=== PATIENT | female | born 1960 | race Caucasian/White ===

== ENCOUNTER 2020-06-21 13:10 | Outpatient (CLI) | payer MEDICARE | END 2020-06-21 13:11 | disposition home or self-care (01) | LOC: CSHCT 13:10 | PROVIDERS: ATTEND Internal Medicine Pulmonary Disease | DX: U07.1 COVID-19 (principal); J12.82 Pneumonia due to coronavirus disease 2019; J84.10 Pulmonary fibrosis, unspecified; J47.9 Bronchiectasis, uncomplicated | CPT/HCPCS: 71250 ==

== ENCOUNTER 2020-06-24 13:18 | Outpatient (CLI) | payer MEDICARE | END 2020-06-24 13:19 | disposition home or self-care (01) | LOC: CSHULT 13:18 | PROVIDERS: ATTEND Internal Medicine Pulmonary Disease | DX: J96.11 Chronic respiratory failure with hypoxia (principal); I27.20 Pulmonary hypertension, unspecified | CPT/HCPCS: 93306 ==

== ENCOUNTER 2020-12-15 18:05 | Observation (INO) | payer MEDICARE ==
[2020-12-15] MEDS ORDERED: Piperacillin/Tazobactam 4.5 GM VIAL ONE (19:09)
[2020-12-15 19:12] LABS: #Basophils 0.1 10x3/uL (0.0-0.2); #Eosinphils 0.3 10x3/uL (0.0-0.5); #Monocytes 0.7 10x3/uL (0.0-1.1); #Neutrophils 4.6 10x3/uL (1.5-8.4); %Basophils 0.7 % (0.0-2.0); %Eosinophils 3.6 % (0.0-6.0); %Lymphocytes 36.3 % (18.0-47.0); %Monocytes 7.3 % (0.0-10.0); %Neutrophils 51.8 % (40.0-75.0); Hemoglobin 12.8 g/dL (12.0-15.5); Mean Corpuscular Hemoglobin 28.6 pg (27.0-33.0); Mean Corpuscular Volume 89.5 fl (81.6-98.3); Platelet Count 185 10x3/uL (150-450); RBC Distribution Width 13.5 % (11.5-14.5); Red Blood Cell (RBC) Count 4.47 10x6/uL (3.90-5.03); White Blood Cell (WBC) Count 8.9 10x3/uL (3.5-10.5)
[2020-12-15 19:32] LABS: ALT (SGPT) 21 U/L (8-55); AST (SGOT) 21 U/L (5-34); Alkaline Phosphatase 92 U/L (40-110); Anion Gap 13 mmol/L (10-20); BUN (Urea Nitrogen) 29 mg/dL (9.8-20.1); Bilirubin, Total 0.3 mg/dL (0.2-1.2); Calc. Creatinine Clearance 0 mL/min (70-130); Calcium 9.1 mg/dL (7.8-10.44); Carbon Dioxide 31 mmol/L (22-29); Chloride 99 mmol/L (98-107); Globulin 3.7 g/dL (2.4-3.5); Glucose 121 mg/dL (70-105); Potassium 4.2 mmol/L (3.5-5.1); Protein, Total 7.7 g/dL (6.0-8.3); Sodium 139 mmol/L (136-145)
[2020-12-15] MEDS ORDERED: VANCOMYCIN 2 GRAM/400 ML BAG 2 GM in Premix Bag 1 BAG IVPB SCH (20:15)
[2020-12-15] MEDS ORDERED: Ondansetron PF 4 MG/2 ML Vial ONE (20:18)
[2020-12-15] MEDS ORDERED: Morphine 4 MG/ML VIAL ONE (20:19)
[2020-12-15] MEDS ORDERED: Senokot S 8.6-50 MG TAB PO PRN (22:23)
[2020-12-15] MEDS ORDERED: Calcium Carbonate 500 MG ChewTAB PO PRN (22:23)
[2020-12-15] MEDS ORDERED: Acetaminophen 325 MG TAB PO PRN (22:23)
[2020-12-15] MEDS ORDERED: Milk Of Magnesia 30 ML UDCUP PO PRN (22:23)
[2020-12-15] MEDS ORDERED: Ventolin HFA Inhaler 60 PUFF INHALER INH PRN (22:32)
[2020-12-15] MEDS: HYDROcodone/Acetaminophen 5/325 mg Tablet PO PRN (23:37)
[2020-12-16] MEDS ORDERED: hydrOXYzine 25 MG TAB PO SCH (03:15)
[2020-12-16] MEDS ORDERED: Baclofen 10 MG TAB PO SCH (03:15)
[2020-12-16] MEDS ORDERED: Amitriptyline HCl 25 MG TAB PO SCH (03:15)
[2020-12-16] MEDS: HYDROcodone/Acetaminophen 5/325 mg Tablet PO PRN ×3 (03:36→13:24)
[2020-12-16] MEDS: Piperacillin/Tazobactam 3.375 GM in Sodium Chloride 0.9% 100 ML IVPB SCH ×3 (03:37→20:51)
[2020-12-16 04:25] LABS: #Basophils 0.1 10x3/uL (0.0-0.2); #Eosinphils 0.3 10x3/uL (0.0-0.5); #Monocytes 0.7 10x3/uL (0.0-1.1); #Neutrophils 5.1 10x3/uL (1.5-8.4); %Basophils 0.8 % (0.0-2.0); %Eosinophils 3.6 % (0.0-6.0); %Lymphocytes 32.6 % (18.0-47.0); %Monocytes 7.7 % (0.0-10.0); %Neutrophils 54.5 % (40.0-75.0); Hemoglobin 12.3 g/dL (12.0-15.5); Mean Corpuscular HGB CONC 31.6 g/dL (32.0-36.0); Mean Corpuscular Hemoglobin 28.5 pg (27.0-33.0); Mean Platelet Volume 9.9 fl (7.4-10.4); Platelet Count 195 10x3/uL (150-450); RBC Distribution Width 13.6 % (11.5-14.5); Red Blood Cell (RBC) Count 4.32 10x6/uL (3.90-5.03); White Blood Cell (WBC) Count 9.3 10x3/uL (3.5-10.5)
[2020-12-16 04:37] LABS: Anion Gap 13 mmol/L (10-20); BUN (Urea Nitrogen) 26 mg/dL (9.8-20.1); Calc. Creatinine Clearance 0 mL/min (70-130); Calcium 9.3 mg/dL (7.8-10.44); Carbon Dioxide 32 mmol/L (22-29); Chloride 99 mmol/L (98-107); Glucose 144 mg/dL (70-105); Magnesium 1.9 mg/dL (1.6-2.6); Potassium 4.1 mmol/L (3.5-5.1); Sodium 140 mmol/L (136-145)
[2020-12-16 05:50] VITALS: BMI 54.9
[2020-12-16] MEDS: Mometasone/Formoterol 200/5 60 PUFF INH SCH ×3 (07:10→18:30)
[2020-12-16] MEDS ORDERED: Spironolactone 25 MG TAB PO SCH (08:00)
[2020-12-16] MEDS: Baclofen 10 MG TAB PO SCH ×3 (08:58→20:50)
[2020-12-16] MEDS: Carvedilol 25 MG TAB PO SCH ×2 (08:59→20:45)
[2020-12-16] MEDS: Dicyclomine 10 MG CAP PO SCH ×4 (08:59→20:42)
[2020-12-16] MEDS: Clopidogrel Bisulfate 75 MG TAB PO SCH (08:59)
[2020-12-16] MEDS: DULoxetine 30 MG CAP PO SCH (09:01)
[2020-12-16] MEDS: Lisinopril 5 MG TAB PO SCH (09:02)
[2020-12-16] MEDS: Furosemide 40 MG TAB PO SCH (09:02)
[2020-12-16] MEDS: Gabapentin 300 MG CAP PO SCH (09:02)
[2020-12-16] MEDS: Chlorthalidone 25 MG TAB PO SCH (09:03)
[2020-12-16] MEDS: Enoxaparin Sodium 40 MG/0.4 ML SYRINGE SC SCH (09:03)
[2020-12-16] MEDS: VANCOMYCIN 2 GRAM/400 ML BAG 2 GM in Premix Bag 1 BAG IVPB SCH ×2 (09:07→20:58)
[2020-12-16 14:28] LABS: SARS-CoV-2 PCR by NAA Not Detected (NotDetected)
[2020-12-16] MEDS: HYDROcodone/Acetaminophen 10/325 mg Tablet PO PRN ×2 (18:10→21:58)
[2020-12-16] MEDS: Amitriptyline HCl 25 MG TAB PO SCH (20:42)
[2020-12-16] MEDS: Famotidine 20 MG TAB PO SCH (20:45)
[2020-12-16] MEDS: Pregabalin 75 MG CAP PO SCH (20:46)
[2020-12-17] MEDS: HYDROcodone/Acetaminophen 10/325 mg Tablet PO PRN ×5 (04:25→21:32)
[2020-12-17] MEDS: Piperacillin/Tazobactam 3.375 GM in Sodium Chloride 0.9% 100 ML IVPB SCH ×2 (04:29→11:21)
[2020-12-17] MEDS: Mometasone/Formoterol 200/5 60 PUFF INH SCH ×2 (07:00→19:00)
[2020-12-17 08:23] LABS: #Eosinphils 0.3 10x3/uL (0.0-0.5); #Monocytes 0.5 10x3/uL (0.0-1.1); #Neutrophils 3.1 10x3/uL (1.5-8.4); %Basophils 0.6 % (0.0-2.0); %Eosinophils 5.5 % (0.0-6.0); %Lymphocytes 34.4 % (18.0-47.0); %Monocytes 8.6 % (0.0-10.0); %Neutrophils 50.3 % (40.0-75.0); Hemoglobin 11.9 g/dL (12.0-15.5); Mean Corpuscular Hemoglobin 27.9 pg (27.0-33.0); Mean Corpuscular Volume 89.9 fl (81.6-98.3); Platelet Count 180 10x3/uL (150-450); RBC Distribution Width 13.6 % (11.5-14.5); Red Blood Cell (RBC) Count 4.27 10x6/uL (3.90-5.03); White Blood Cell (WBC) Count 6.2 10x3/uL (3.5-10.5)
[2020-12-17 08:38] LABS: ALT (SGPT) 22 U/L (8-55); AST (SGOT) 21 U/L (5-34); Albumin 3.8 g/dL (3.5-5.0); Alkaline Phosphatase 92 U/L (40-110); Anion Gap 13 mmol/L (10-20); BUN (Urea Nitrogen) 23 mg/dL (9.8-20.1); Bilirubin, Total 0.3 mg/dL (0.2-1.2); Calc. Creatinine Clearance 137 mL/min (70-130); Calcium 8.8 mg/dL (7.8-10.44); Carbon Dioxide 33 mmol/L (22-29); Chloride 100 mmol/L (98-107); Globulin 3.3 g/dL (2.4-3.5); Glucose 122 mg/dL (70-105); Potassium 4.2 mmol/L (3.5-5.1); Protein, Total 7.1 g/dL (6.0-8.3); Sodium 142 mmol/L (136-145)
[2020-12-17] MEDS: Pregabalin 75 MG CAP PO SCH ×3 (08:38→21:31)
[2020-12-17] MEDS: Baclofen 10 MG TAB PO SCH ×3 (08:38→21:28)
[2020-12-17] MEDS: Furosemide 40 MG TAB PO SCH (08:40)
[2020-12-17] MEDS: Carvedilol 25 MG TAB PO SCH ×2 (08:41→22:30)
[2020-12-17] MEDS: Dicyclomine 10 MG CAP PO SCH ×4 (08:41→21:30)
[2020-12-17] MEDS: Clopidogrel Bisulfate 75 MG TAB PO SCH (08:41)
[2020-12-17] MEDS: Lisinopril 5 MG TAB PO SCH (08:41)
[2020-12-17] MEDS: Chlorthalidone 25 MG TAB PO SCH (08:42)
[2020-12-17 08:43] LABS: Vancomycin, Trough 32.9 ug/mL
[2020-12-17] MEDS: Enoxaparin Sodium 40 MG/0.4 ML SYRINGE SC SCH (08:44)
[2020-12-17] MEDS ORDERED: FLU VACC QS2021-22(6MOS UP)/PF 60 MCG/0.5 ML SYRINGE IM ONE (09:00)
[2020-12-17] MEDS: DULoxetine 30 MG CAP PO SCH (09:19)
[2020-12-17] MEDS: Gabapentin 300 MG CAP PO SCH (09:19)
[2020-12-17] MEDS: VANCOMYCIN 2 GRAM/400 ML BAG 2 GM in Premix Bag 1 BAG IVPB SCH (09:20)
[2020-12-17] MEDS: AMOXicillin 250 MG CAP PO SCH ×2 (14:53→21:30)
[2020-12-17] MEDS ORDERED: DULoxetine 30 MG CAP PO SCH (21:00)
[2020-12-17] MEDS ORDERED: Gabapentin 300 MG CAP PO SCH (21:00)
[2020-12-17] MEDS: Amitriptyline HCl 25 MG TAB PO SCH (21:27)
[2020-12-17] MEDS: Famotidine 20 MG TAB PO SCH (21:28)
[2020-12-17] MEDS ORDERED: diphenhydrAMINE 25 MG CAP PO SCH (23:30)
[2020-12-18] MEDS: HYDROcodone/Acetaminophen 10/325 mg Tablet PO PRN ×3 (01:42→10:03)
[2020-12-18 04:47] LABS: #Eosinphils 0.3 10x3/uL (0.0-0.5); #Monocytes 0.6 10x3/uL (0.0-1.1); #Neutrophils 2.6 10x3/uL (1.5-8.4); %Basophils 0.6 % (0.0-2.0); %Eosinophils 5.1 % (0.0-6.0); %Lymphocytes 43.9 % (18.0-47.0); %Monocytes 9.6 % (0.0-10.0); %Neutrophils 40.3 % (40.0-75.0); Hemoglobin 11.5 g/dL (12.0-15.5); Mean Corpuscular HGB CONC 31.3 g/dL (32.0-36.0); Mean Corpuscular Hemoglobin 27.9 pg (27.0-33.0); Mean Corpuscular Volume 89.3 fl (81.6-98.3); Platelet Count 171 10x3/uL (150-450); RBC Distribution Width 13.4 % (11.5-14.5); Red Blood Cell (RBC) Count 4.12 10x6/uL (3.90-5.03); White Blood Cell (WBC) Count 6.5 10x3/uL (3.5-10.5)
[2020-12-18 04:55] LABS: ALT (SGPT) 20 U/L (8-55); AST (SGOT) 19 U/L (5-34); Albumin 3.4 g/dL (3.5-5.0); Alkaline Phosphatase 78 U/L (40-110); Anion Gap 12 mmol/L (10-20); BUN (Urea Nitrogen) 18 mg/dL (9.8-20.1); Bilirubin, Total 0.3 mg/dL (0.2-1.2); Calc. Creatinine Clearance 166 mL/min (70-130); Calcium 8.8 mg/dL (7.8-10.44); Carbon Dioxide 32 mmol/L (22-29); Chloride 102 mmol/L (98-107); Glucose 115 mg/dL (70-105); Potassium 4.1 mmol/L (3.5-5.1); Protein, Total 6.4 g/dL (6.0-8.3); Sodium 142 mmol/L (136-145)
[2020-12-18] MEDS: AMOXicillin 250 MG CAP PO SCH ×2 (05:31→14:02)
[2020-12-18] MEDS: Mometasone/Formoterol 200/5 60 PUFF INH SCH (07:00)
[2020-12-18] MEDS: Clopidogrel Bisulfate 75 MG TAB PO SCH (07:54)
[2020-12-18] MEDS: Lisinopril 5 MG TAB PO SCH (07:54)
[2020-12-18] MEDS: Chlorthalidone 25 MG TAB PO SCH (07:54)
[2020-12-18] MEDS: Furosemide 40 MG TAB PO SCH (07:55)
[2020-12-18] MEDS: Baclofen 10 MG TAB PO SCH ×2 (07:55→14:01)
[2020-12-18] MEDS: Pregabalin 75 MG CAP PO SCH ×2 (07:55→14:02)
[2020-12-18] MEDS: Dicyclomine 10 MG CAP PO SCH ×2 (07:56→14:01)
[2020-12-18] MEDS: Carvedilol 25 MG TAB PO SCH (07:56)
[2020-12-18] MEDS: Enoxaparin Sodium 40 MG/0.4 ML SYRINGE SC SCH (07:57)
[2020-12-18] MEDS ORDERED: diphenhydrAMINE 25 MG CAP PO SCH (08:00)
[2020-12-18] MEDS ORDERED: Benzonatate 100 MG CAP PO PRN (08:18)
[2020-12-18 16:01] VITALS: BP 146/68; TEMP 97.8
== END 2020-12-18 17:05 | disposition home or self-care (01) ==
LOC: CSHERS 18:05 → CSHTELE 18:06 → INTOOBSV 18:06
PROVIDERS: ADMIT Family Medicine; ATTEND Internal Medicine
DX: L03.116 Cellulitis of left lower limb (principal); L60.0 Ingrowing nail; R21 Rash and other nonspecific skin eruption; J96.11 Chronic respiratory failure with hypoxia; I10 Essential (primary) hypertension; G89.29 Other chronic pain; M54.9 Dorsalgia, unspecified; Z79.899 Other long term (current) drug therapy; E66.9 Obesity, unspecified; Z86.16 Personal history of COVID-19; Z99.81 Dependence on supplemental oxygen; G47.33 Obstructive sleep apnea (adult) (pediatric); Z20.822 Contact with and (suspected) exposure to COVID-19; M79.605 Pain in left leg
CPT/HCPCS: 71046; 73660; 80048; 80053 ×3; 80202; 82962 ×4; 83605; 83735; 85025 ×4; 87040; 93971; 94760 ×4; 96365; 96366; 96367; 96375; 99284; G0378; U0003; U0005; 36415; 36416; J1650; J2270; J2405; J2543; J3370; J3490

== ENCOUNTER 2021-01-09 09:47 | Emergency (ER) | payer MEDICARE ==
[2021-01-09] MEDS ORDERED: Morphine 4 MG/ML VIAL ONE (10:37)
[2021-01-09] MEDS ORDERED: Dexamethasone 10 MG/ML VIAL ONE (10:37)
[2021-01-09] MEDS ORDERED: diphenhydrAMINE 50 MG/ML VIAL ONE (10:38)
[2021-01-09] MEDS ORDERED: Famotidine 20 MG TAB ONE (10:39)
[2021-01-09 12:11] LABS: #Basophils 0.1 10x3/uL (0.0-0.2); #Eosinphils 0.3 10x3/uL (0.0-0.5); #Monocytes 0.7 10x3/uL (0.0-1.1); #Neutrophils 5.1 10x3/uL (1.5-8.4); %Basophils 0.6 % (0.0-2.0); %Eosinophils 3.5 % (0.0-6.0); %Lymphocytes 27.8 % (18.0-47.0); %Monocytes 7.8 % (0.0-10.0); %Neutrophils 59.6 % (40.0-75.0); Mean Corpuscular HGB CONC 31.3 g/dL (32.0-36.0); Mean Corpuscular Hemoglobin 28.2 pg (27.0-33.0); Mean Corpuscular Volume 90.1 fl (81.6-98.3); Mean Platelet Volume 9.6 fl (7.4-10.4); Platelet Count 170 10x3/uL (150-450); RBC Distribution Width 14.4 % (11.5-14.5); Red Blood Cell (RBC) Count 4.26 10x6/uL (3.90-5.03); White Blood Cell (WBC) Count 8.6 10x3/uL (3.5-10.5)
[2021-01-09 12:23] LABS: Anion Gap 13 mmol/L (10-20); BUN (Urea Nitrogen) 27 mg/dL (9.8-20.1); Calc. Creatinine Clearance 0 mL/min (70-130); Calcium 8.7 mg/dL (7.8-10.44); Carbon Dioxide 30 mmol/L (22-29); Chloride 102 mmol/L (98-107); Glucose 124 mg/dL (70-105); Potassium 3.9 mmol/L (3.5-5.1); Sodium 141 mmol/L (136-145)
== END 2021-01-09 13:23 | disposition home or self-care (01) ==
LOC: CSHERS 09:47
DX: M79.644 Pain in right finger(s) (principal); R21 Rash and other nonspecific skin eruption; R22.0 Localized swelling, mass and lump, head; I10 Essential (primary) hypertension; K21.9 Gastro-esophageal reflux disease without esophagitis; G47.30 Sleep apnea, unspecified; Z79.01 Long term (current) use of anticoagulants; Z79.899 Other long term (current) drug therapy
CPT/HCPCS: 36415; 80048; 85025; 86140; 93005; 96372; J1100; J1200; J2270